=== PATIENT | female | born 1935 | race Asian ===

== ENCOUNTER 2022-02-18 14:51 | Emergency (ER) | payer MEDICARE ==
[~2022-02-18] VITALS: Ht 162.6 cm; Wt 68.2 kg
[2022-02-18] MEDS ORDERED: CARV6 PO (15:46)
[2022-02-18] MEDS ORDERED: DOCU-385 PO (15:46)
[2022-02-18] MEDS ORDERED: MAGN500T17 PO (15:46)
[2022-02-18] MEDS ORDERED: GABA-1181 PO (15:46)
[2022-02-18] MEDS ORDERED: ASPI-1444 PO (15:46)
[2022-02-18] MEDS ORDERED: OMEP20 PO (15:46)
[2022-02-18] MEDS ORDERED: MULT1TAB61 PO (15:46)
[2022-02-18] MEDS ORDERED: CYAN500T56 PO (15:46)
[2022-02-18] MEDS ORDERED: PRAV20TA4 PO (15:46)
[2022-02-18] MEDS ORDERED: SODIUM CHLORIDE 0.9% 1,000 ML IV ONE (16:00)
[2022-02-18] MEDS ORDERED: MORPHINE SULFATE 2 MG/ML SYRINGE IVP ONE (16:00)
[2022-02-18 16:14] LABS: BASOPHILS % (AUTO) 0.4 % (0.0-2.0); HEMATOCRIT 37.6 % (36-46); HEMOGLOBIN 12.3 g/dL (12.0-16.0); LYMPHOCYTES # (AUTO) 2.2 K/uL (1.0-4.8); LYMPHOCYTES % (AUTO) 37.6 % (22.0-44.0); MEAN CORPUSCULAR HEMOGLOBIN 30.2 pg (26.0-34.0); MEAN CORPUSCULAR HGB CONC 32.8 G/dL (31.0-37.0); MEAN CORPUSCULAR VOLUME 92 fL (80-100); MONOCYTES # (AUTO) 0.5 K/uL (0.1-1.0); MONOCYTES % (AUTO) 8.3 % (2.0-9.0); NEUTROPHILS # (AUTO) 3.1 K/uL (1.8-7.7); NEUTROPHILS % (AUTO) 51.7 % (40.0-70.0); PLATELET COUNT (AUTO) 235 K/uL (150-450); RED BLOOD CELL COUNT(AUTO) 4.08 MIL/uL (4.00-5.20); RED CELL DISTRIBUTION WIDTH 14.7 % (11.5-14.5)
[2022-02-18 16:17] LABS: APPEARANCE,URINE CLEAR (CLEAR); BILIRUBIN,URINE NEGATIVE (NEGATIVE); GLUCOSE, URINE (UA) NEGATIVE (NEGATIVE); KETONES,URINE NEGATIVE (NEGATIVE); LEUKOCYTE ESTERASE ,URINE NEGATIVE (NEGATIVE); NITRATE,URINE NEGATIVE (NEGATIVE); OCCULT BLOOD,URINE SMALL (NEGATIVE); PH,URINE 6.5 (5.0-8.0); PROTEIN,URINE NEGATIVE (NEGATIVE); SPECIFIC GRAVITIY, URINE 1.007 (1.003-1.030); UROBILINOGEN,URINE <=1.0 mg/dL (<=1.0)
[2022-02-18 16:34] LABS: BACTERIA,URINE None Seen /HPF (None Seen); RBC,URINE 0-2 /HPF (0-2); SQUAMOUS EPITHELIAL CELL,UR Few /LPF (None Seen); WBC,URINE None Seen /HPF (0-5)
[2022-02-18 16:35] LABS: CALCIUM, TOTAL 9.8 mg/dL (8.8-10.5); CREATININE 0.92 mg/dL (0.60-1.30); POTASSIUM 4.2 mmol/L (3.5-5.1)
[2022-02-18 16:41] LABS: ALBUMIN 3.6 g/dL (3.4-5.0); BILIRUBIN,TOTAL 0.2 mg/dL (0.1-1.0); TOTAL PROTEIN, SERUM 7.3 g/dL (6.4-8.2)
[2022-02-18] MEDS ORDERED: ACET-3385 PO (20:18)
[2022-02-18] MEDS ORDERED: MAGN-169 PO (20:18)
[2022-02-18 20:22] VITALS: BP 151/97
== END 2022-02-18 21:35 | disposition home or self-care (01) ==
LOC: EMS 14:55
DX: R10.12 Left upper quadrant pain (principal); K59.00 Constipation, unspecified; I10 Essential (primary) hypertension; K21.9 Gastro-esophageal reflux disease without esophagitis; Z79.899 Other long term (current) drug therapy; Z88.8 Allergy status to other drugs, medicaments and biological substances
CPT/HCPCS: 99285; 74176; 96374; 71045; 96361; 80053; 81001; 83690; 84484; 85025; 36415; 93005; J2270; J7030